=== PATIENT | female | born 1995 | race African-American/Black ===

== ENCOUNTER 2025-10-07 09:53 | Outpatient (AMB) | payer OTHER, SELFPAY ==
[2025-10-07 10:11] VITALS: BMI 32.1
--- NOTE | 2025-10-07 10:11 | MHC.AMNUTRGE ---
VS Expanded 10/07/25 10:11 10/11/25 14:06 Height 5 ft 6.5 in 5 ft 6.5 in Weight 202 lb 202 lb BMI 32.1 32.1 Intake Visit Reasons: Obesity Nutrition Presentation Details: Pt presents for MNT for obesity Pt was 195 lbs was Aug 2024 and gradually gaining wt, now in 202 lbs Pt reports increased appetite and sometimes getting shaky if not eating on time. 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 , admits to increased snacks , empty calorie snacks Meal at 3 am (rice/chicken/beans meal ,water) 4 pm rice and chicken and beans or as needed up with vegetables and chicken and rice, water 7 am: cereal and fried egg and bread, chooses whole milk Alcohol intake denies Physical activity: Sedentary Food frequency Fish 0 to once a month Foods 0-1 a day Vegetables 3 times a week Dairy 1 a day Sweets and pastries: 3 or more per day Beverages water, juice, soda, tea [id number] Equation Height: 5 ft 6.5 in Weight: 202 lb Resting Metabolic Rate: 1662.43 Calculated Activity Level: Sedentary Calories Needed to Maintain Weight: 1993. Diagnosis Nutrition problem #1: excessive energy intake As related to (etiology) #1: lack of nutrit education and physical inactivity As evidenced by (sign/symptom) #1: food recall and high BMI Assessment & Plan Assessment & Plan (1) Obesity (BMI 30.0-34.9): Code(s): E66.811 - Obesity, class 1 Category: Medical Plan: current wt: 92 kg ( 10/21 ) est kcal needs as per MSJ: 2000 est protein needs as per 1 g/kg BW: 90 est fluid needs as per 30 ml/kg BW: 2700 Recommended fiber > 12 g /day and gradually increase up to 25-28 g /day or as tolerated Recommended sodium intake: Less than 2300 mg per day Nutrition topics discussed : Reviewed (R), Pt verbalized understanding (V) , not applicable (N/A) R, : Healthy Plate Method Concept: R, : Carbohydrates: food sources of carbohydrates, relationship of carbohydrates to blood glucose, fatty liver GI health. Recommended total amount of carbohydrates per meals and snack. Differences between simple carbohydrates and complex carbohydrates R, : Lean protein foods including vegan , vegetarian sources of protein. Benefits of protein (including but not limited to healing, nutritional value , benefits in weight loss, glucose control R, V, N/A: Fats : Source of fats, benefits of fats. Difference between saturated and unsaturated fats. Saturated fats and its contribution to inflammation R, V, N/A: Fiber: food sources and role of fiber in the diet (including but not limited to its role as a prebiotic, benefits in constipation, role in IBS , role in glucose control and cholesterol level) R, : Hydration: role of hydration and prevention of dehydration or over hydration. Foods and water content. R, V, N/A: Vitamins and Minerals in foods and supplements R, V, N/A: Interpreting food labels, including serving size, macronutrients, vitamins, minerals, allergens, ingredient list , % daily value Patient Instructions: Work on reducing calories by 500 less by reducing on snacks in between meals see 2000 calorie meal plan Coding Level of Care Code Nutr Indiv Intake (09729) Diagnoses Obesity (BMI 30.0-34.9) E66.811 Time Spent (min) 30
[2025-10-11 14:06] VITALS: BMI 32.1
== END 2025-10-07 11:00 | disposition home or self-care (01) ==
LOC: HO.ENCR 09:53
PROVIDERS: PCP Student in an Organized Health Care Education/Training Program; Visit Provider Dietitian, Registered
DX: E66.811 Obesity, class 1 (principal)

== ENCOUNTER → 2025-10-07 09:53 | Outpatient (BNVA) | payer OTHER, SELFPAY | PROVIDERS: PCP Student in an Organized Health Care Education/Training Program; Visit Provider Dietitian, Registered | DX: E66.811 Obesity, class 1 (principal); Z71.3 Dietary counseling and surveillance; Z68.32 Body mass index [BMI] 32.0-32.9, adult | CPT/HCPCS: 97802 ==